=== PATIENT | male | born 1960 | race Caucasian/White ===

== ENCOUNTER 2019-02-28 12:04 | Emergency (ER) | payer BC ==
--- OUTSIDE RECORDS SUMMARY | 2019-02-28 12:12 | XMS REPORT | Continuity of Care Document ---
:1960 External Reference #:[id number] Author Name Machelle Rapp MD Address [address] [place] [address] Care Team Providers Name Role Phone Jhonathan Vinson MD Care Team Information Medical Cash Poster Unavailable Jhonathan Vinson MD Primary Care Physician Unavailable Payers Date Identification Numbers Payment Provider Subscriber Policy Number: [id number] Laverne Fernandez PayID: [id number] [address] [address] [place] [address] Problems Active Problems Provider Date Hyperlipidemia Chauncey Hunt M.D. Onset: 11/21/2017 Taking medication Chauncey Hunt M.D. Onset: 11/21/2017 Screening for malignant neoplasm of prostate Chauncey Hunt M.D. Onset: 11/21 Abnormal results of cardiovascular function Chauncey Hunt M.D. Onset: 2017 studies Encounter for screening for nutritional Chauncey Hunt M.D. Onset: 11/21/2017 disorder Cough Chauncey Hunt M.D. Onset: 11/21/2017 Acute sinusitis Chauncey Hunt M.D. Onset: 11/21/2017 Electrocardiogram abnormal Chauncey Hunt M.D. Onset: 11/21/2017 Chronic obstructive lung disease Chauncey Hunt M.D. Onset: 11/30/2017 Aneurysm of thoracic aorta Chauncey Hunt M.D. Onset: 02/01/2018 Dyspnea Chauncey Hunt M.D. Onset: 02/01/2018 Abnormal findings diagnostic imaging of Chauncey Hunt M.D. Onset: 02/14/2018 liver+biliary tract Essential hypertension Chauncey Hunt M.D. Onset: 05/11/2018 Low back pain Chauncey Hunt M.D. 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'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 Independent with all ADL's Tobacco Use Start: Unknown End: Quit Unknown Smoking Status Reviewed: 02/26/19 Quit ETOH Use Currently consumes alcohol weekends Tobacco Use Start: Unknown End: Patient is a former smoker quit 1986 Unknown Recreational Drug Use Never Used Drugs Exercise Type/Frequency Exercises sporadically Allergies, Adverse Reactions, Alerts Active Allergies Reaction Severity Comments Date Unknown unknown injectable pain 12/31/2015 med Pravastatin severe lower leg pain Severe 01/26/2018 Medications Active Medications SIG Qnty Indications Ordering Provider Date Ubiquinol 2 by mouth once Chauncey Hunt, 02/19/2019 100mg Capsules daily M.DDelmi Aspir-Low 1 by mouth 90tabs Eulogio Reynoso, 03/29/[address] every day DO Vitamin D 1 by mouth Unknown 2000Unit every day Capsules History Medications Methylprednisolone take as 1dosepack M54.5 Gilbert, 08/23/2018 - 4mg TBPK directed James Grossman 02/19/2019 Medrol take as 21units Gilbert, 02/19/2018 - 4mg TBPK directed James Grossman 04/10/2018 Ubiquinol 1 by mouth 90caps Gilbert, 02/14/2018 - 100mg Capsules once daily James Grossman 02/19/2019 Amoxicillin take 1 tablet 20tabs J01.90 Gilbert, 11/21/2017 - 875mg Tablets by mouth every Andras, M.D. Unknown 12 hours for 10 days Pravastatin Sodium 1 by mouth 30tabs E78.5 Gilbert, 11/21/2017 - 20mg Tablets every day James Grossman Unknown No Active Medications Eulogio Reynoso 02/02/2016 - E., DO 03/29/2016 No Active Medications Eulogio Reynoso 12/31/2015 - E., DO 12/31/2015 Xyzal Eulogio Reynoso 12/31/2015 - 5mg Tablets E., DO 12/31/2015 No Active Medications Unknown 12/31/2015 - 12/31/2015 Immunizations CPT Code Status Date Vaccine Lot # [id number] Given 11/21/2017 Influenza Virus Vaccine Quadrivalent Iiv4 Split [id number] Preser Free Id Vital Signs Date Vital Result Comment 02/26/2019 2:25pm BP Systolic Sitting Left Arm 138 mmHg BP Diastolic Sitting Left Arm 58 mmHg Heart Rate 81 /min Respiratory Rate 16 /min Height 72 inches 6'0" Weight 227.00 lb BMI (Body Mass Index) 30.8 kg/m2 BSA (Body Surface Area) 2.25 m2 Bostic body weight in kilograms 81 kg 02/19/2019 9:07am BP Systolic 116 mmHg BP Diastolic 68 mmHg Heart Rate 68 /min Respiratory Rate 18 /min Height 72 inches 6'0" Weight 231.00 lb BMI (Body Mass Index) 31.3 kg/m2 BSA (Body Surface Area) 2.27 m2 Bostic body weight in kilograms 81 kg O2 % BldC Oximetry 98 % Ra 08/23/2018 1:25pm BP Systolic Sitting Left Arm 126 mmHg BP Diastolic Sitting Left Arm 70 mmHg Body Temperature 99.0 F Heart Rate 73 /min Respiratory Rate 18 /min Height 72 inches 6'0" Weight 229.00 lb BMI (Body Mass Index) 31.1 kg/m2 BSA (Body Surface Area) 2.26 m2 Bostic body weight in kilograms 81 kg O2 % BldC Oximetry 95 % Ra 08/21/2018 10:15am BP Systolic Sitting Left Arm 140 mmHg BP Diastolic Sitting Left Arm 77 mmHg Heart Rate 86 /min Respiratory Rate 18 /min Height 72 inches 6'0" Weight 229.00 lb BMI (Body Mass Index) 31.1 kg/m2 BSA (Body Surface Area) 2.26 m2 Bostic body weight in kilograms 81 kg O2 Saturation Level with Exercise 95 % 05/11/2018 4:12pm BP Systolic Sitting Left Arm 112 mmHg BP Diastolic Sitting Left Arm 64 mmHg Body Temperature 98.4 F Heart Rate 73 /min Respiratory Rate 16 /min Height 72 inches 6'0" Weight 228.00 lb BMI (Body Mass Index) 30.9 kg/m2 BSA (Body Surface Area) 2.25 m2 Bostic body weight in kilograms 81 kg O2 % BldC Oximetry 95 % Ra 04/10/2018 3:00pm BP Systolic Sitting Left Arm 112 mmHg BP Diastolic Sitting Left Arm 62 mmHg Heart Rate 70 /min Respiratory Rate 16 /min Height 72 inches 6'0" Weight 226.00 lb BMI (Body Mass Index) 30.6 kg/m2 BSA (Body Surface Area) 2.24 m2 Bostic body weight in kilograms 81 kg O2 % BldC Oximetry 94 % 02/14/2018 3:18pm BP Systolic 133 mmHg BP Diastolic 68 mmHg Body Temperature 98.7 F Heart Rate 76 /min Respiratory Rate 18 /min Height 72 inches 6'0" Weight 228.00 lb BMI (Body Mass Index) 30.9 kg/m2 BSA (Body Surface Area) 2.25 m2 Bostic body weight in kilograms 81 kg O2 % BldC Oximetry 95 % 02/01/2018 3:45pm BP Systolic 133 mmHg Checked With His Cuff 129/80 BP Diastolic 72 mmHg Checked With His Cuff 129/80 Body Temperature 97.7 F Heart Rate 72 /min Respiratory Rate 20 /min Height 72 inches 6'0" Weight 228.00 lb BMI (Body Mass Index) 30.9 kg/m2 BSA (Body Surface Area) 2.25 m2 Bostic body weight in kilograms 81 kg O2 % BldC Oximetry 93 % 01/26/2018 1:40pm BP Systolic Sitting Left Arm 120 mmHg BP Diastolic Sitting Left Arm 70 mmHg Respiratory Rate 16 /min Height 72 inches 6'0" Weight 226.00 lb BMI (Body Mass Index) 30.6 kg/m2 BSA (Body Surface Area) 2.24 m2 Bostic body weight in kilograms 81 kg 01/01/2018 1:58pm BP Systolic Sitting Left Arm 135 mmHg BP Diastolic Sitting Left Arm 70 mmHg Heart Rate 63 /min Respiratory Rate 16 /min Height 72 inches 6'0" Weight 227.00 lb BMI (Body Mass Index) 30.8 kg/m2 BSA (Body Surface Area) 2.25 m2 Bostic body weight in kilograms 81 kg 11/30/2017 11:00am BP Systolic 131 mmHg BP Diastolic 76 mmHg Heart Rate 70 /min Respiratory Rate 14 /min Height 72 inches 6'0" Weight 226.50 lb BMI (Body Mass Index) 30.7 kg/m2 BSA (Body Surface Area) 2.25 m2 Bostic body weight in kilograms 81 kg O2 % BldC Oximetry 96 % 11/21/2017 2:42pm BP Systolic 145 mmHg BP Diastolic 79 mmHg Heart Rate 101 /min Respiratory Rate 14 /min Height 72 inches 6'0" Weight 227.00 lb BMI (Body Mass Index) 30.8 kg/m2 BSA (Body Surface Area) 2.25 m2 Bostic body weight in kilograms 81 kg O2 % BldC Oximetry 95 % 03/29/2016 11:01am BP Systolic 123 mmHg BP Diastolic 77 mmHg Body Temperature 97.7 F Heart Rate 102 /min Height 72 inches 6'0" Weight 223.00 lb BMI (Body Mass Index) 30.2 kg/m2 BSA (Body Surface Area) 2.23 m2 02/02/2016 10:49am BP Systolic 137 mmHg BP Diastolic 78 mmHg Heart Rate 70 /min Height 72 inches 6'0" Weight 228.00 lb BMI (Body Mass Index) 30.9 kg/m2 BSA (Body Surface Area) 2.25 m2 O2 % BldC Oximetry 95 % 12/31/2015 9:53am BP Systolic 138 mmHg BP Diastolic 80 mmHg Heart Rate 68 /min Height 72 inches 6'0" Weight 225.00 lb BMI (Body Mass Index) 30.5 kg/m2 BSA (Body Surface Area) 2.24 m2 Results Test Date Facility Test Result H/L Range Note CBC 02/06/2019 [facility] White Blood 6.5 K/uL N 3.4-10.5 1 W/Automated [address] [place] [address] [phone] Red Blood Count 5.42 M/uL N 4.20-5.80 Hemoglobin 15.1 gm/dL N 12.8-17.0 Hematocrit 44.9 % N 38.0-48.0 Mean Cell Volume 82.8 fl N 80.0-96.0 Mean Corpuscular HGB 27.9 pg N 27.0-33.0 Mean Corpuscular HGB Conc 33.6 g/dL N 31.7-36.0 Platelet Count 198 K/uL N 155-360 Red Cell Distri Width SD 40.9 fl N 36-51 Red Cell Distri Width %CV 13.7 % N 11.6-15.8 Mean Platelet Volume 10.1 fl N 6.6-10.6 Neut% 59.4 % N 33.0-73.0 Lymph % 28.9 % N 20.0-42.0 Nuckolls % 8.5 % N 0.0-10.0 Eo% 2.2 % N 0.0-6.6 Bas% 0.8 % N 0.0-1.1 Immature Grans 0.2 % N 0.0-5.0 NRBC % 0.0 /100WBC < 10/ 100 WBC Neut# 3.87 K/uL N 1.8-7.0 Lymph # 1.88 K/uL N 1.0-4.0 Nuckolls # 0.55 K/uL N 0.0-0.8 Eos # 0.14 K/uL N 0.0-0.5 Baso # 0.05 K/uL N 0.0-0.1 Immature Grans Absolute 0.01 K/uL NRBC # 0.00 K/uL Comprehensive Metabolic 02/06/2019 [facility] Glucose 85 mg/dL N 74-106 Panel [address] [place] [address] [phone] BUN 14 mg/dL N 7-18 Creatinine 0.9 mg/dL N 0.6-1.3 Glom Filtration Rate, Estimate >60 mL/min >60 If >60 mL/min >60 2 BUN/Creat 15.5 ratio Sodium 140 mmol/L N 136-145 Potassium 3.7 mmol/L N 3.5-5.1 Chloride 108 mmol/L High 98-107 Carbon Dioxide 27 mmol/L N 21-32 Anion Gap 5 mEq/L Low 8-16 Calcium 8.7 mg/dL N 8.5-10.1 Total Protein 7.0 g/dL N 6.4-8.2 Albumin 4.0 g/dL N 3.4-5.0 Globulin 3.0 g/dL N 1.9-4.3 Alb/Glob 1.3 ratio Bilirubin,Total 0.7 mg/dL N 0.2-1.0 Sgot/Ast 17 U/L N 15-37 SGPT/Alt 34 U/L N 12-78 Alkaline Phosphatase 55 U/L N 45-117 Reflex add FT3? Y Reflex add FT4? Y LDL Cholesterol 02/06/2019 [facility] Cholesterol 212 mg/dL High <200 [address] [place] [address] [phone] Triglycerides 100 mg/dL <150 4 HDL Cholesterol 44 mg/dL >40 5 LDL-Cholesterol 148 mg/dL < 100 6 Reflex add FT3? Y Reflex add FT4? Y TSH Reflex FT4 02/06/2019 [facility] Thyroid Stim 0.86 uIU/mL N 0.30-4.20 And/Or FT3 [address] [place] [address] [phone] Reflex add FT3? Y Reflex add FT4? Y Glycohemoglobin A1c 02/06/2019 [facility] Glycohemoglobin 5.6 % N 4.2-6.[address] (A1c) [place] [address] [phone] eAG 114 mg/dL CBC W/Automated Diff 08/21/2018 [facility] White Blood 5.7 K/uL N 3.4-10.[address] [place] [address] [phone] Red Blood Count 5.57 M/uL N 4.20-5.80 Hemoglobin 15.3 gm/dL N 12.8-17.0 Hematocrit 45.7 % N 38.0-48.0 Mean Cell Volume 82.0 fl N 80.0-96.0 Mean Corpuscular HGB 27.5 pg N 27.0-33.0 Mean Corpuscular HGB Conc 33.5 g/dL N 31.7-36.0 Platelet Count 200 K/uL N 155-360 Red Cell Distri Width SD 42.0 fl N 36-51 Red Cell Distri Width %CV 14.3 % N 11.6-15.8 Mean Platelet Volume 10.5 fL N 6.6-10.6 Neut% 54.2 % N 33.0-73.0 Lymph % 33.4 % N 20.0-42.0 Nuckolls % 7.5 % N 0.0-10.0 Eo% 4.0 % N 0.0-6.6 Bas% 0.9 % N 0.0-1.1 Neut# 3.11 K/uL N 1.8-7.0 Lymph # 1.92 K/uL N 1.0-4.0 Nuckolls # 0.43 K/uL N 0.0-0.8 Eos # 0.23 K/uL N 0.0-0.5 Baso # 0.05 K/uL N 0.0-0.1 Comprehensive Metabolic 08/21/2018 [facility] Glucose 106 mg/dL N 74-106 Panel [address] [place] [address] [phone] BUN 12 mg/dL N 7-18 Creatinine 1.0 mg/dL N 0.6-1.3 Glom Filtration Rate, Estimate >60 mL/min >60 If >60 mL/min >60 9 BUN/Creat 12.0 ratio Sodium 142 mmol/L N 136-145 Potassium 3.9 mmol/L N 3.5-5.1 Chloride 109 mmol/L High 98-107 Carbon Dioxide 29 mmol/L N 21-32 Anion Gap 4 mEq/L Low 8-16 Calcium 8.7 mg/dL N 8.5-10.1 Total Protein 7.1 g/dL N 6.4-8.2 Albumin 3.8 g/dL N 3.4-5.0 Globulin 3.3 g/dL N 1.9-4.3 Alb/Glob 1.2 ratio Bilirubin,Total 0.6 mg/dL N 0.2-1.0 Sgot/Ast 23 U/L N 15-37 SGPT/Alt 38 U/L N 12-78 Alkaline Phosphatase 58 U/L N 45-117 Reflex add FT3? Y Reflex add FT4? Y Magnesium 08/21/2018 [facility] Magnesium 2.3 mg/dL N 1.8-2.4 [address] [place] [address] [phone] Reflex add FT3? Y Reflex add FT4? Y Ua RFX Micro & Culture 08/21/2018 [facility] Urine Color YELLOW Yellow II [address] [place] [address] [phone] Urine Clarity CLEAR Clear Urine Glucose - Dipstick NEGATIVE mg/dL Negative Urine Bilirubin - Dipstick NEGATIVE Negative Urine Ketone NEGATIVE mg/dL Negative Urine Specific [place]ax >=1.030 N 1.010-1.030 Urine Blood NEGATIVE Negative Urine PH 6.0 Low 6.5-7.5 Urine Protein - Dipstick NEGATIVE mg/dL Negative Urine Urobilinogen - Dipstick 0.2 E.U./dL N 0.2-1.0 Urine Nitrite - Dipstick NEGATIVE Negative Urine Leuk Esterase NEGATIVE Negative Source: URINE, CLEAN CAT <SEE NOTE> 10 LDL Cholesterol Profile 08/21/2018 [facility] Cholesterol 195 mg/dL <[address] [place] [address] [phone] Triglycerides 117 mg/dL <150 12 HDL Cholesterol 41 mg/dL >40 13 LDL-Cholesterol 131 mg/dL < 100 14 Reflex add FT3? Y Reflex add FT4? Y TSH Reflex FT4 08/21/2018 [facility] Thyroid Stim 2.40 uIU/mL N 0.30-4.20 And/Or FT3 [address] [place] [address] [phone] Reflex add FT3? Y Reflex add FT4? Y CBS W/Automated 05/09/2018 [facility] White Blood 5.1 K/uL N 3.4-10.5 [address] [place] [address] [phone] Red Blood Count 5.22 M/uL N 4.20-5.80 Hemoglobin 14.8 gm/dL N 12.8-17.0 Hematocrit 43.1 % N 38.0-48.0 Mean Cell Volume 82.6 fl N 80.0-96.0 Mean Corpuscular HGB 28.4 pg N 27.0-33.0 Mean Corpuscular HGB Conc 34.3 g/dL N 31.7-36.0 Platelet Count 199 K/uL N 155-360 Red Cell Distri Width SD 42.3 fl N 36-51 Red Cell Distri Width %CV 14.2 % N 11.6-15.8 Mean Platelet Volume 10.7 fL High 6.6-10.6 Neut% 50.9 % N 33.0-73.0 Lymph % 32.0 % N 20.0-42.0 Nuckolls % 11.6 % High 0.0-10.0 Eo% 4.5 % N 0.0-6.6 Bas% 1.0 % N 0.0-1.1 Neut# 2.60 K/uL N 1.8-7.0 Lymph # 1.63 K/uL N 1.0-4.0 Nuckolls # 0.59 K/uL N 0.0-0.8 Eos # 0.23 K/uL N 0.0-0.5 Baso # 0.05 K/uL N 0.0-0.1 Laboratory test finding 05/09/2018 [facility] CK 196 U/L N 39-308 [address] [place] [address] [phone] Comprehensive Metabolic 05/09/2018 [facility] Glucose 105 mg/dL N 74-106 Panel [address] [place] [address] [phone] BUN 15 mg/dL N 7-18 Creatinine 0.9 mg/dL N 0.6-1.3 Glom Filtration Rate, Estimate >60 mL/min >60 If >60 mL/min >60 16 BUN/Creat 16.6 ratio Sodium 144 mmol/L N 136-145 Potassium 3.8 mmol/L N 3.5-5.1 Chloride 110 mmol/L High 98-107 Carbon Dioxide 24 mmol/L N 21-32 Anion Gap 10 mEq/L N 8-16 Calcium 7.8 mg/dL Low 8.5-10.1 Total Protein 6.6 g/dL N 6.4-8.2 Albumin 3.6 g/dL N 3.4-5.0 Globulin 3.0 g/dL N 1.9-4.3 Alb/Glob 1.2 ratio Bilirubin,Total 0.3 mg/dL N 0.2-1.0 Sgot/Ast 19 U/L N 15-37 SGPT/Alt 32 U/L N 12-78 Alkaline Phosphatase 47 U/L N 45-117 LDL Cholesterol 05/09/2018 [facility] Cholesterol 201 mg/dL High <200 17 Profile [address] [place] [address] [phone] Triglycerides 94 mg/dL <150 18 HDL Cholesterol 38 mg/dL Low >40 19 LDL-Cholesterol 144 mg/dL < 100 20 Laboratory test 01/24/2018 [facility] CK 128 U/L N 39-308 21, 22 finding [address] [place] [address] [phone] Comprehensive 01/24/2018 [facility] Glucose 105 mg/dL N 74-106 Metabolic Panel [address] [place] [address] [phone] BUN 16 mg/dL N 7-18 Creatinine 1.0 mg/dL N 0.6-1.3 Glom Filtration Rate, Estimate >60 mL/min >60 If >60 mL/min >60 23 BUN/Creat 16.0 ratio Sodium 141 mmol/L N 136-145 Potassium 4.0 mmol/L N 3.5-5.1 Chloride 106 mmol/L N 98-107 Carbon Dioxide 27 mmol/L N 21-32 Anion Gap 8 mEq/L N 8-16 Calcium 8.6 mg/dL N 8.5-10.1 Total Protein 6.9 g/dL N 6.4-8.2 Albumin 4.0 g/dL N 3.4-5.0 Globulin 2.9 g/dL N 1.9-4.3 Alb/Glob 1.4 ratio Bilirubin,Total 0.5 mg/dL N 0.2-1.0 Sgot/Ast 13 U/L Low 15-37 24 SGPT/Alt 31 U/L N 12-78 Alkaline Phosphatase 55 U/L N 45-117 CBS W/Automated Diff 01/24/2018 [facility] White Blood 4.9 K/uL N 3.4-10.5 [address] [place] [address] [phone] Red Blood Count 5.49 M/uL N 4.20-5.80 Hemoglobin 15.4 gm/dL N 12.8-17.0 Hematocrit 45.0 % N 38.0-48.0 Mean Cell Volume 82.0 fl N 80.0-96.0 Mean Corpuscular HGB 28.1 pg N 27.0-33.0 Mean Corpuscular HGB Conc 34.2 g/dL N 31.7-36.0 Platelet Count 187 K/uL N 155-360 Red Cell Distri Width SD 41.3 fl N 36-51 Red Cell Distri Width %CV 14.2 % N 11.6-15.8 Mean Platelet Volume 10.6 fL N 6.6-10.6 Neut% 55.4 % N 33.0-73.0 Lymph % 29.2 % N 20.0-42.0 Nuckolls % 9.7 % N 0.0-10.0 Eo% 4.9 % N 0.0-6.6 Bas% 0.8 % N 0.0-1.1 Neut# 2.73 K/uL N 1.8-7.0 Lymph # 1.44 K/uL N 1.0-4.0 Nuckolls # 0.48 K/uL N 0.0-0.8 Eos # 0.24 K/uL N 0.0-0.5 Baso # 0.04 K/uL N 0.0-0.1 Laboratory test 01/24/2018 [facility] HDL Cholesterol 39 mg/dL Low >40 [address] [place], [place] [id number] [phone] Direct LDL 01/24/2018 [facility] LDL Chol. 124 mg/dL High 0-[address] (Direct) [place], [place] [address] [phone] Comment (SEE NOTE) 26 Laboratory test 01/24/2018 [facility] Triglycerides 99 mg/dL <150 [address] [place] [address] [phone] HDL Cholesterol 11/22/2017 [facility] HDL Cholesterol 43 mg/dL >40 28, [address] [place], [place] [address] [phone] Reflex add FT3? Y Reflex add FT4? Y Direct LDL 11/22/2017 [facility] LDL Chol. 183 mg/dL High 0-[address] (Direct) [place], [place] [id number] [phone] Comment (SEE NOTE) 30 Triglycerides 11/22/2017 [facility] Triglycerides 113 mg/dL <[address] [place], [place] [id number] [phone] Reflex add FT3? Y Reflex add FT4? Y Laboratory test 11/22/2017 [facility] Vitamin 31.4 30.0-100.0 [address] D,25-Hydroxy ng/[place] [address] [phone] Prostate 11/22/2017 [facility] PSA ([place] Loci) 3.11 < 4.0 33 Specific [address] [facility] ng/mL Antigen [place], [place] [id number] [phone] Reflex add FT3? Y Reflex add FT4? Y Ua RFX Micro & Culture 11/22/2017 [facility] Urine Color YELLOW Yellow II [address] [place] [address] [phone] Urine Clarity CLEAR Clear Urine Glucose - Dipstick NEGATIVE mg/dL Negative Urine Bilirubin - Dipstick NEGATIVE Negative Urine Ketone NEGATIVE mg/dL Negative Urine Specific [place] 1.025 N 1.010-1.030 Urine Blood NEGATIVE Negative Urine PH 6.0 Low 6.5-7.5 Urine Protein - Dipstick NEGATIVE mg/dL Negative Urine Urobilinogen - Dipstick 0.2 E.U./dL N 0.2-1.0 Urine Nitrite - Dipstick NEGATIVE Negative Urine Leuk Esterase NEGATIVE Negative Source: URINE, CLEAN CAT <SEE NOTE> 34 Magnesium 11/22/2017 [facility] Magnesium 2.2 mg/dL N 1.8-2.4 [address] [place] [address] [phone] Reflex add FT3? Y Reflex add FT4? Y Comprehensive Metabolic 11/22/2017 [facility] Glucose 107 mg/dL High 74-106 Panel [address] [place] [address] [phone] BUN 14 mg/dL N 7-18 Creatinine 0.9 mg/dL N 0.6-1.3 Glom Filtration Rate, Estimate >60 mL/min >60 If >60 mL/min >60 35 BUN/Creat 15.5 ratio Sodium 142 mmol/L N 136-145 Potassium 4.0 mmol/L N 3.5-5.1 Chloride 110 mmol/L High 98-107 Carbon Dioxide 29 mmol/L N 21-32 Anion Gap 3 mEq/L Low 8-16 Calcium 9.0 mg/dL N 8.5-10.1 Total Protein 7.1 g/dL N 6.4-8.2 Albumin 3.9 g/dL N 3.4-5.0 Globulin 3.2 g/dL N 1.9-4.3 Alb/Glob 1.2 ratio Bilirubin,Total 0.6 mg/dL N 0.2-1.0 Sgot/Ast 16 U/L N 15-37 SGPT/Alt 27 U/L N 12-78 Alkaline Phosphatase 54 U/L N 45-117 Reflex add FT3? Y Reflex add FT4? Y CBS W/Automated Diff 11/22/2017 [facility] White Blood 6.1 K/uL N 3.4-10.[address] [place] [address] [phone] Red Blood Count 5.51 M/uL N 4.20-5.80 Hemoglobin 15.6 gm/dL N 12.8-17.0 Hematocrit 44.8 % N 38.0-48.0 Mean Cell Volume 81.3 fl N 80.0-96.0 Mean Corpuscular HGB 28.3 pg N 27.0-33.0 Mean Corpuscular HGB Conc 34.8 g/dL N 31.7-36.0 Platelet Count 207 K/uL N 155-360 Red Cell Distri Width SD 41.3 fl N 36-51 Red Cell Distri Width %CV 14.3 % N 11.6-15.8 Mean Platelet Volume 10.8 fL High 6.6-10.6 Neut% 57.6 % N 33.0-73.0 Lymph % 27.1 % N 20.0-42.0 Nuckolls % 8.9 % N 0.0-10.0 Eo% 5.6 % N 0.0-6.6 Bas% 0.8 % N 0.0-1.1 Neut# 3.51 K/uL N 1.8-7.0 Lymph # 1.65 K/uL N 1.0-4.0 Nuckolls # 0.54 K/uL N 0.0-0.8 Eos # 0.34 K/uL N 0.0-0.5 Baso # 0.05 K/uL N 0.0-0.1 TSH Reflex FT4 11/22/2017 [facility] Thyroid Stim 1.86 uIU/mL N 0.30-4.20 And/Or FT3 [address] [place] [address] [phone] Reflex add FT3? Y Reflex add FT4? Y PSA (Free 01/01/2016 [facility] Prostate-specific 2.6 ng/mL 0.0-4.0 36 And Total) [address] [facility] antigen,[place] [address] [phone] PSA,Free 0.68 N/Ang/mL 37 %Free PSA 26.2 % . 38 LDL Cholesterol 01/01/2016 [facility] Cholesterol 222 mg/dL High <200 39 Profile [address] [place] [address] [phone] Triglycerides 157 mg/dL High <150 40 HDL Cholesterol 39 mg/dL Low >40 41 LDL-Cholesterol 152 mg/dL < 100 42 Comprehensive Metabolic 01/01/2016 [facility] Glucose 106 mg/dL 74-106 Panel [address] [place] [address] [phone] BUN 16 mg/dL 7-18 Creatinine 0.9 mg/dL 0.6-1.3 Glom Filtration Rate, Estimate >60 mL/min >60 If >60 mL/min >60 43 BUN/Creat 17.7 ratio Sodium 141 mmol/L 136-145 Potassium 4.1 mmol/L 3.5-5.1 Chloride 107 mmol/L 98-107 Carbon Dioxide 26 mmol/L 21-32 Anion Gap 8 mEq/L 8-16 Calcium 8.6 mg/dL 8.5-10.1 Total Protein 7.1 g/dL 6.4-8.2 Albumin 3.8 g/dL 3.4-5.0 Globulin 3.3 g/dL 1.9-4.3 Alb/Glob 1.2 ratio Bilirubin,Total 0.7 mg/dL 0.2-1.0 Sgot/Ast 17 U/L 15-37 SGPT/Alt 43 U/L 12-78 Alkaline Phosphatase 56 U/L 45-117 CBC W/Automated Diff 01/01/2016 [facility] White Blood 5.4 K/uL 3.4-10.[address] [address] [phone] Red Blood Count 5.79 M/uL 4.20-5.80 Hemoglobin 16.2 gm/dL 12.8-17.0 Hematocrit 47.0 % 38.0-48.0 Mean Cell Volume 81.2 fl 80.0-96.0 Mean Corpuscular HGB 28.0 pg 27.0-33.0 Mean Corpuscular HGB Conc 34.5 g/dL 31.7-36.0 Platelet Count 195 K/uL 150-400 Red Cell Distri Width SD 40.9 fl 36-51 Red Cell Distri Width %CV 14.2 % 11.6-15.8 Mean Platelet Volume 10.2 fL 6.6-10.6 Neut% 60.6 % 33.0-73.0 Lymph % 25.9 % 17.0-56.0 Nuckolls % 8.1 % 0.0-10.0 Eo% 4.3 % 0.0-5.0 Bas% 1.1 % High 0.1-1.0 Neut# 3.28 K/uL 1.8-7.0 Lymph # 1.40 K/uL Low 1.8-7.0 Nuckolls # 0.44 K/uL 0.0-0.8 Eos # 0.23 K/uL 0.0-0.5 Baso # 0.06 K/uL Low 0.1-0.2 1 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 Patients with eGFR values >/=60 mL/min/1.73 m2 may also have CKD if evidence of persistent proteinuria is present. The original MDRD equation for estimated GFR is not valid for patients less than 18 years of age. Additional information may be found at www.kdoqi.org. 3 Reference Guidelines*: Desirable: ........... < 200 mg/dL Borderline High: ..... 200-239 mg/dL High: ................ >=240 mg/dL * The National Cholesterol Education Program (NCEP) 4 Reference Guidelines*: Normal: ............. < 150 mg/dL Borderline High: .... 150-199 mg/dL High: ............... 200-499 mg/dL Very High: .......... > 500 mg/dL * Source: National Cholesterol Education Program (NCEP) 5 Reference Guidelines*: Low HDL: ..... < 40 mg/dL Normal: ..... 40-60 mg/dL Desirable: ... > 60 mg/dL *The National Cholesterol Education Program(NCEP) 6 Reference Guidelines*: Optimal:........... <100 mg/dL Near Optimal....... 100-129 mg/dL Borderline High.... 130-159 mg/dL High............... 160-189 mg/dL Very High.......... >=190 mg/dL * Source: National Cholesterol Education Program (NCEP) 7 Elevated levels of HbA1c suggest the need for more aggressive treatment of glycemia. The [place] [employer] recommends that a primary goal of therapy should be a HbA1c of <7% and that physicians should re-evaluate the treatment regimen in patients with HbA1c values consistently >8%. 8 Z79.899,E78.2 9 Note: Persistent reduction for 3 months or more in an eGFR <60 mL/min/1.73 m2 defines CKD. Patients with eGFR values >/=60 mL/min/1.73 m2 may also have CKD if evidence of persistent proteinuria is present. The original MDRD equation for estimated GFR is not valid for patients less than 18 years of age. Additional information may be found at www.kdoqi.org. 10 URINE, CLEAN CATCH 11 Reference Guidelines*: Desirable: ........... < 200 mg/dL Borderline High: ..... 200-239 mg/dL High: ................ >=240 mg/dL * The National Cholesterol Education Program (NCEP) 12 Reference Guidelines*: Normal: ............. < 150 mg/dL Borderline High: .... 150-199 mg/dL High: ............... 200-499 mg/dL Very High: .......... > 500 mg/dL * Source: National Cholesterol Education Program (NCEP) 13 Reference Guidelines*: Low HDL: ..... < 40 mg/dL Normal: ..... 40-60 mg/dL Desirable: ... > 60 mg/dL *The National Cholesterol Education Program(NCEP) 14 Reference Guidelines*: Optimal:........... <100 mg/dL Near Optimal....... 100-129 mg/dL Borderline High.... 130-159 mg/dL High............... 160-189 mg/dL Very High.......... >=190 mg/dL * Source: National Cholesterol Education Program (NCEP) 15 E78.5,Z79.899 16 Note: Persistent reduction for 3 months or more in an eGFR <60 mL/min/1.73 m2 defines CKD. Patients with eGFR values >/=60 mL/min/1.73 m2 may also have CKD if evidence of persistent proteinuria is present. The original MDRD equation for estimated GFR is not valid for patients less than 18 years of age. Additional information may be found at www.kdoqi.org. 17 Reference Guidelines*: Desirable: ........... < 200 mg/dL Borderline High: ..... 200-239 mg/dL High: ................ >=240 mg/dL * The National Cholesterol Education Program (NCEP) 18 Reference Guidelines*: Normal: ............. < 150 mg/dL Borderline High: .... 150-199 mg/dL High: ............... 200-499 mg/dL Very High: .......... > 500 mg/dL * Source: National Cholesterol Education Program (NCEP) 19 Reference Guidelines*: Low HDL: ..... < 40 mg/dL Normal: ..... 40-60 mg/dL Desirable: ... > 60 mg/dL *The National Cholesterol Education Program(NCEP) 20 Reference Guidelines*: Optimal:........... <100 mg/dL Near Optimal....... 100-129 mg/dL Borderline High.... 130-159 mg/dL High............... 160-189 mg/dL Very High.......... >=190 mg/dL * Source: National Cholesterol Education Program (NCEP) 21 Z79.899,E78.5 22 Is Patient Fasting? Fasting 23 Note: Persistent reduction for 3 months or more in an eGFR <60 mL/min/1.73 m2 defines CKD. Patients with eGFR values >/=60 mL/min/1.73 m2 may also have CKD if evidence of persistent proteinuria is present. The original MDRD equation for estimated GFR is not valid for patients less than 18 years of age. Additional information may be found at www.kdoqi.org. 24 Values below the stated reference ranges of AST and ALT can be seen in normal populations. Clinical correlation is suggested. 25 Reference Guidelines*: Low HDL: ..... < 40 mg/dL Normal: ..... 40-60 mg/dL Desirable: ... > 60 mg/dL *The National Cholesterol Education Program(NCEP) 26 Performed at: [facility] [id number] [place]: Olivia Patel MD, Phone: [phone] 27 Reference Guidelines*: Normal: ............. < 150 mg/dL Borderline High: .... 150-199 mg/dL High: ............... 200-499 mg/dL Very High: .......... > 500 mg/dL * Source: National Cholesterol Education Program (NCEP) 28 E78.5,Z79.899,Z12.5,Z13.21 29 Reference Guidelines*: Low HDL: ..... < 40 mg/dL Normal: ..... 40-60 mg/dL Desirable: ... > 60 mg/dL *The National Cholesterol Education Program(NCEP) 30 Performed at: [facility] [id number] [place]: Olivia Patel MD, Phone: [phone] 31 Reference Guidelines*: Normal: ............. < 150 mg/dL Borderline High: .... 150-199 mg/dL High: ............... 200-499 mg/dL Very High: .......... > 500 mg/dL * Source: National Cholesterol Education Program (NCEP) 32 Vitamin D deficiency has been defined by the [place] of Medicine and an Endocrine Society practice guideline as a level of serum 25-OH vitamin D less than 20 ng/mL (1,2). The Endocrine Society went on to further define vitamin D insufficiency as a level between 21 and 29 ng/mL (2). 1. IOM ([place] of Medicine). 2010. Dietary reference intakes for calcium and D. [place]: The National Academies Press. 2. Shea MF, Lashawn MARRUFO, Rina BREWER, et al. Evaluation, treatment, and prevention of vitamin D deficiency: an Endocrine Society clinical practice guideline. JCEM. 2010; 96(7):1911-30. Performed at: - [facility] [id number] [place]: Olivia Patel MD, Phone: [phone] 33 THIS ASSAY IS NOT INTENDED A CANCER SCREENING TEST The concentration of PSA in a given specimen, determined with assays from different manufacturers, can vary due to differences in assay methods and reagent specificity. Values obtained from different assay methods cannot be used interchangeably. Method: Siemens CBLPath [place] Chemiluminescent immunoassay. 34 URINE, CLEAN CATCH 35 Note: Persistent reduction for 3 months or more in an eGFR <60 mL/min/1.73 m2 defines CKD. Patients with eGFR values >/=60 mL/min/1.73 m2 may also have CKD if evidence of persistent proteinuria is present. The original MDRD equation for estimated GFR is not valid for patients less than 18 years of age. Additional information may be found at www.kdoqi.org. 36 Janet ECLIA methodology. According to the [place] [employer], Serum PSA should decrease and remain at undetectable levels after radical prostatectomy. The AUA defines biochemical recurrence as an initial PSA value 0.2 ng/mL or greater followed by a subsequent confirmatory PSA value 0.2 ng/mL or greater. Values obtained with different assay methods or kits cannot be used interchangeably. Results cannot be interpreted as absolute evidence of the presence or absence of malignant disease. 37 Janet ECLIA methodology. 38 The table below lists the probability of prostate cancer for men with non-suspicious CARON results and total PSA between 4 and 10 ng/mL, by patient age (Catalona et al, NIKKI 1998, 279:1542). % Free PSA 50-64 yr 65-75 yr 0.00-10.00% 56% 55% 10.01-15.00% 24% 35% 15.01-20.00% 17% 23% 20.01-25.00% 10% 20% >25.00% 5% 9% Please note: Sanket et al did not make specific recommendations regarding the use of percent free PSA for any other population of men. Performed at: RN - [facility] [address] [id number] [place]: Olivia Patel MD, Phone: [phone] 39 Reference Guidelines*: Desirable: ........... < 200 mg/dL Borderline High: ..... 200-239 mg/dL High: ................ >=240 mg/dL * The National Cholesterol Education Program (NCEP) 40 Reference Guidelines*: Normal: ............. < 150 mg/dL Borderline High: .... 150-199 mg/dL High: ............... 200-499 mg/dL Very High: .......... > 500 mg/dL * Source: National Cholesterol Education Program (NCEP) 41 Reference Guidelines*: Low HDL: ..... < 40 mg/dL Normal: ..... 40-60 mg/dL Desirable: ... > 60 mg/dL *The National Cholesterol Education Program(NCEP) 42 Reference Guidelines*: Optimal:........... <100 mg/dL Near Optimal....... 100-129 mg/dL Borderline High.... 130-159 mg/dL High............... 160-189 mg/dL Very High.......... >=190 mg/dL * Source: National Cholesterol Education Program (NCEP) 43 Note: Persistent reduction for 3 months or more in an eGFR <60 mL/min/1.73 m2 defines CKD. Patients with eGFR values >/=60 mL/min/1.73 m2 may also have CKD if evidence of persistent proteinuria is present. The original MDRD equation for estimated GFR is not valid for patients less than 18 years of age. Additional information may be found at www.kdoqi.org. Procedures Date Code Description Status 02/26/2019 18165 EKG-Tracing And Report Completed 02/06/2019 82909 Echocardiogram Complete Completed 04/17/2018 11708 Bronchospasm Provocation Evaluation Multi Spirometric Completed Determinati 04/17/2018 91668 Spirometry Completed 01/15/2018 30872 ECHO [employer]anst[employer] Performance Continuous Completed Electrocardio 01/01/2018 26916 EKG-Tracing And Report Completed 11/23/2017 97561 Echocardiogram Complete Completed 03/29/2016 25306 Asp./Injection major joint Completed 01/11/2016 13153 Stress Test Interpre And Report Only Completed 01/11/2016 77795 Stress Test Physician Super Only Completed 01/11/2016 62754 Stress Test Physician Super Only Completed 01/11/2016 29014 Myocardial Imaging Tomographic Multiple Study AT Rest Completed Or Stress 09/04/2012 [id number] Colonoscopy Completed Encounters Type Date Location Provider Dx Diagnosis Office Visit 02/26/2019 Cardiology Office Machelle Rapp MD I71.2 Thoracic aortic 2:15p aneurysm, without rupture I10 Essential (primary) hypertension I35.1 Nonrheumatic aortic (valve) insufficiency Office Visit 02/19/2019 9:00a Family Medicine Jhonathan Vinson I71.2 Thoracic aortic Rodrick COELHO MD aneurysm, without rupture E78.2 Mixed hyperlipidemia Z79.899 Other chcf (current) drug therapy K76.0 Fatty (change of) liver, not elsewhere classified 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, subcu of head, face and neck I10 Essential (primary) hypertension Office Visit 08/23/2018 1:00p Primary Care Chauncey Hunt I71.2 Thoracic aortic Office M.DDelmi aneurysm, without rupture M54.5 Low back pain E78.2 Mixed hyperlipidemia R93.2 Abnormal findings on dx imaging of liver and biliary tract Z79.899 Other terminal manager (current) drug therapy Office Visit 08/21/2018 10:00a Cardiology Office Machelle Rapp I71.2 Thoracic aortic aneurysm, without rupture I35.1 Nonrheumatic aortic (valve) insufficiency I10 Essential (primary) hypertension E78.2 Mixed hyperlipidemia Office Visit 05/11/2018 3:40p Primary Care Chauncey Hunt, I71.2 Thoracic aortic Office M.D. aneurysm, without rupture Z79.899 Other chcf (current) drug therapy E78.2 Mixed hyperlipidemia Office Visit 04/10/2018 3:00p Pulmonology Dilan Heredia MD R06.02 Shortness of breath F17.211 Nicotine dependence, cigarettes, in remission Office Visit 02/14/2018 3:20p Primary Care Chauncey Hunt R93.2 Abnormal findings Office M.D. on dx imaging of liver and biliary tract Office Visit 02/01/2018 3:40p Primary Care Chauncey Hunt E78.5 Hyperlipidemia, Office M.D. unspecified I71.2 Thoracic aortic aneurysm, without rupture R06.02 Shortness of breath J44.9 Chronic obstructive pulmonary disease, unspecified Z79.899 Other chcf (current) drug therapy Office Visit 01/26/2018 1:30p Cardiology Office Machelle Rapp, R06.02 Shortness of MD breath I71.2 Thoracic aortic aneurysm, without rupture E78.2 Mixed hyperlipidemia I10 Essential (primary) hypertension Office Visit 01/01/2018 1:30p Cardiology Machelle Rapp, R94.30 Abnormal result of Office cardiovascular function study, unsp E78.2 Mixed hyperlipidemia R06.02 Shortness of breath Office Visit 11/30/2017 11:00a Primary Care Chauncey Hunt E78.5 Hyperlipidemia, Office M.D. unspecified Z79.899 Other terminal manager (current) drug therapy J01.90 Acute sinusitis, unspecified J44.9 Chronic obstructive pulmonary disease, unspecified Office Visit 11/21/2017 2:40p Primary Care Chauncey Hunt E78.5 Hyperlipidemia, Office M.D. unspecified Z79.899 Other terminal manager (current) drug therapy Z12.5 Encounter for screening for malignant neoplasm of prostate R94.39 Abnormal result of other cardiovascular function study Z13.21 Encounter for screening for nutritional disorder R05 Cough J01.90 Acute sinusitis, unspecified R94.31 Abnormal electrocardiogram [ECG] [EKG] Z23 Encounter for immunization Office Visit 03/29/2016 11:00a Primary Care Eulogio Reynoso M75.41 Impingement Office E., DO syndrome of right shoulder Office Visit 02/02/2016 10:40a Primary Care Eulogio Reynoso E78.5 Hyperlipidemia, Office E., DO unspecified Office Visit 12/31/2015 10:00a Primary Care Eulogio Reynoso Z00.00 Encntr for general Office E., DO adult medical exam w/o abnormal findings R07.9 Chest pain, unspecified M54.2 Cervicalgia Plan of Treatment Future Appointment(s):02/26/2020 10:00 am - Machelle Rapp MD at Cardiology [place]4508/20/2019 8:00 am - Jhonathan Vinson MD at [facility] [address] - Machelle Rapp MDI71.2 Thoracic aortic aneurysm, without ruptureNew Xrays: CT, Chest W Out Contrast, Ordered: 02/26/19Ultrasound, Aortic Screening (Only Once A Year), Ordered: 02/26/19Comments:Stable TAA 4.4cm by CT. BP well controlled. Counseled on avoidance of heavy isometric exercise. Lipids followed by PCP - pt intolerant to statins. I will set him up for annual surveillance CT and sincehe has h/o smoking (albeit quit in 1987) will also get AAA screening USG.I10 Essential (primary) hypertensionComments:Well controlled. No changes. Manually 130 mmHg, at home 120' mmHg [id number] Nonrheumatic aortic (valve) insufficiencyComments:Only mild AI with tricuspid AV on echo 02/2019. No need for follow up imaging unless change in symptoms.AllFollow up:[address]
--- OUTSIDE RECORDS SUMMARY | 2019-02-28 12:12 | XMS REPORT | Continuity of Care Document ---
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 Onset: 02/14/2018 liver+biliary tract Essential hypertension Chauncey Hunt M.D. Onset: 05/11/2018 Low back pain Chauncey Hunt M.D. 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 Employed [employer] ADL's/IADL's Independent with all ADL's Tobacco Use Start: Unknown End: Quit Unknown Smoking Status Reviewed: 02/19/19 Quit ETOH Use Currently consumes alcohol weekends [...] 11/21/2017 - 875mg Tablets by mouth every James Grossman Unknown 12 hours for 10 days Pravastatin [...] CPT Code Status Date Vaccine Lot # 63623 Given 11/21/2017 Influenza Virus Vaccine Quadrivalent Iiv4 Split [id number] Preser Free Id Vital Signs Date Vital Result Comment 02/19/2019 9:07am BP Systolic 116 mmHg BP Diastolic 68 mmHg Heart Rate 68 /min Respiratory Rate 18 /min Height 72 inches 6'0" Weight 231.00 lb BMI (Body Mass Index) 31.3 kg/m2 BSA (Body Surface Area) 2.27 m2 [place] body weight in kilograms 81 kg O2 % BldC Oximetry 98 % Ra 08/23/2018 1:25pm BP Systolic Sitting Left Arm 126 mmHg BP Diastolic Sitting Left Arm 70 mmHg Body Temperature 99.0 F Heart Rate 73 /min Respiratory Rate 18 /min Height 72 inches 6'0" Weight 229.00 lb BMI (Body Mass Index) 31.1 kg/m2 BSA (Body Surface Area) 2.26 m2 [place] body weight in kilograms 81 kg O2 % BldC Oximetry 95 % Ra 08/21/2018 10:15am BP Systolic Sitting Left Arm 140 mmHg BP Diastolic Sitting Left Arm 77 mmHg Heart Rate 86 /min Respiratory Rate 18 /min Height 72 inches 6'0" Weight 229.00 lb BMI (Body Mass Index) 31.1 kg/m2 BSA (Body Surface Area) 2.26 m2 [place] body weight in kilograms 81 kg O2 Saturation Level with Exercise 95 % 05/11/2018 4:12pm BP Systolic Sitting Left Arm 112 mmHg BP Diastolic Sitting Left Arm 64 mmHg Body Temperature 98.4 F Heart Rate 73 /min Respiratory Rate 16 /min Height 72 inches 6'0" Weight 228.00 lb BMI (Body Mass Index) 30.9 kg/m2 BSA (Body Surface Area) 2.25 m2 [place] body weight in kilograms 81 kg O2 % BldC Oximetry 95 % Ra 04/10/2018 3:00pm BP Systolic Sitting Left Arm 112 mmHg BP Diastolic Sitting Left Arm 62 mmHg Heart Rate 70 /min Respiratory Rate 16 /min Height 72 inches 6'0" Weight 226.00 lb BMI (Body Mass Index) 30.6 kg/m2 BSA (Body Surface Area) 2.24 m2 [place] body weight in kilograms 81 kg O2 % BldC Oximetry 94 % 02/14/2018 3:18pm BP Systolic 133 mmHg BP Diastolic 68 mmHg Body Temperature 98.7 F Heart Rate 76 /min Respiratory Rate 18 /min Height 72 inches 6'0" Weight 228.00 lb BMI (Body Mass Index) 30.9 kg/m2 BSA (Body Surface Area) 2.25 m2 [place] body weight in kilograms 81 kg O2 % BldC Oximetry 95 % 02/01/2018 3:45pm BP Systolic 133 mmHg Checked With His Cuff 129/80 BP Diastolic 72 mmHg Checked With His Cuff 129/80 Body Temperature 97.7 F Heart Rate 72 /min Respiratory Rate 20 /min Height 72 inches 6'0" Weight 228.00 lb BMI (Body Mass Index) 30.9 kg/m2 BSA (Body Surface Area) 2.25 m2 [place] body weight in kilograms 81 kg O2 % BldC Oximetry 93 % 01/26/2018 1:40pm BP Systolic Sitting Left Arm 120 mmHg BP Diastolic Sitting Left Arm 70 mmHg Respiratory Rate 16 /min Height 72 inches 6'0" Weight 226.00 lb BMI (Body Mass Index) 30.6 kg/m2 BSA (Body Surface Area) 2.24 m2 [place] body weight in kilograms 81 kg 01/01/2018 1:58pm BP Systolic Sitting Left Arm 135 mmHg BP Diastolic Sitting Left Arm 70 mmHg Heart Rate 63 /min Respiratory Rate 16 /min Height 72 inches 6'0" Weight 227.00 lb BMI (Body Mass Index) 30.8 kg/m2 BSA (Body Surface Area) 2.25 m2 [place] body weight in kilograms 81 kg 11/30/2017 11:00am BP Systolic 131 mmHg BP Diastolic 76 mmHg Heart Rate 70 /min Respiratory Rate 14 /min Height 72 inches 6'0" Weight 226.50 lb BMI (Body Mass Index) 30.7 kg/m2 BSA (Body Surface Area) 2.25 m2 [place] body weight in kilograms 81 kg O2 % BldC Oximetry 96 % 11/21/2017 2:42pm BP Systolic 145 mmHg BP Diastolic 79 mmHg Heart Rate 101 /min Respiratory Rate 14 /min Height 72 inches 6'0" Weight 227.00 lb BMI (Body Mass Index) 30.8 kg/m2 BSA (Body Surface Area) 2.25 m2 [place] body weight in kilograms 81 kg O2 [...] Date Facility Test Result H/L Range Note Glycohemoglobin A1c [facility] Glycohemoglobin 5.6 % N 4.2-6.3 1, [address] (A1c) [place], [place] [id number] [phone] eAG 114 mg/dL CBC W/Automated Diff 02/06/2019 [facility] White Blood 6.5 K/uL N 3.4-10.[address] Count [place], [place] [address] [phone] Red Blood Count 5.42 M/uL N 4.20-5.80 [...] 33.0-73.0 Lymph % 28.9 % N 20.0-42.0 Bledsoe % 8.5 % N 0.0-10.0 Eo% 2.2 % N 0.0-6.6 Bas% 0.8 % N 0.0-1.1 Immature Grans 0.2 % N 0.0-5.0 NRBC % 0.0 /100WBC < 10/ 100 WBC Neut# 3.87 K/uL N 1.8-7.0 Lymph # 1.88 K/uL N 1.0-4.0 Bledsoe # 0.55 K/uL N 0.0-0.8 Eos # 0.14 K/uL N 0.0-0.5 Baso # 0.05 K/uL N 0.0-0.1 Immature Grans Absolute 0.01 K/uL NRBC # 0.00 K/uL Comprehensive Metabolic 02/06/2019 [facility] Glucose 85 mg/dL N 74-106 Panel [address] [place] [address] [phone] BUN 14 mg/dL N 7-18 Creatinine 0.9 mg/dL N 0.6-1.3 Glom Filtration Rate, Estimate >60 mL/min >60 If >60 mL/min >60 3 BUN/Creat 15.5 ratio Sodium 140 mmol/L N [...] Reflex add FT4? Y LDL Cholesterol 02/06/2019 [facility] Cholesterol 212 mg/dL High <200 [address] [place] [address] [phone] Triglycerides 100 mg/dL <150 5 HDL Cholesterol 44 mg/dL >40 6 LDL-Cholesterol 148 mg/dL < 100 7 Reflex add FT3? Y Reflex add FT4? Y TSH Reflex FT4 02/06/2019 [facility] Thyroid Stim 0.86 uIU/mL N 0.30-4.20 And/Or FT3 [address] [place] [address] [phone] Reflex add FT3? Y Reflex add FT4? Y CBC W/Automated Diff 08/21/2018 [facility] White Blood 5.7 K/uL N 3.4-10.[address] [place] [address] [phone] Red Blood Count 5.57 M/uL N 4.20-5.80 [...] 33.0-73.0 Lymph % 33.4 % N 20.0-42.0 Bledsoe % 7.5 % N 0.0-10.0 Eo% 4.0 % N 0.0-6.6 Bas% 0.9 % N 0.0-1.1 Neut# 3.11 K/uL N 1.8-7.0 Lymph # 1.92 K/uL N 1.0-4.0 Bledsoe # 0.43 K/uL N 0.0-0.8 Eos # 0.23 K/uL N 0.0-0.5 Baso # 0.05 K/uL N 0.0-0.1 Comprehensive Metabolic 08/21/2018 [facility] Glucose 106 mg/dL N 74-106 Panel [address] [place] [address] [phone] BUN 12 mg/dL N 7-18 Creatinine 1.0 [...] add FT4? Y TSH Reflex FT4 08/21/2018 [facility] Thyroid Stim 2.40 uIU/mL N 0.30-4.20 And/Or FT3 [address] [place], [place] [address] [phone] Reflex add FT3? Y Reflex add FT4? Y Magnesium 08/21/2018 [facility] Magnesium 2.3 mg/dL N 1.8-2.4 [address] [place] [address] [phone] Reflex add FT3? Y Reflex add FT4? Y Ua RFX Micro & Culture 08/21/2018 [facility] Urine Color YELLOW Yellow II [address] [place] [address] [phone] Urine Clarity CLEAR Clear Urine Glucose - Dipstick NEGATIVE mg/dL Negative Urine Bilirubin - Dipstick NEGATIVE Negative Urine Ketone NEGATIVE mg/dL Negative Urine Specific [place] >=1.030 N 1.010-1.030 Urine Blood NEGATIVE Negative Urine PH 6.0 Low 6.5-7.5 Urine Protein - Dipstick NEGATIVE mg/dL Negative Urine Urobilinogen - Dipstick 0.2 E.U./dL N 0.2-1.0 Urine Nitrite - Dipstick NEGATIVE Negative Urine Leuk Esterase NEGATIVE Negative Source: URINE, CLEAN CAT <SEE NOTE> 10 LDL Cholesterol Profile 08/21/2018 [facility] Cholesterol 195 mg/dL <200 11 [address] [place], [place] [address] [phone] Triglycerides 117 mg/dL <150 12 HDL Cholesterol 41 mg/dL >40 13 LDL-Cholesterol 131 mg/dL < 100 14 Reflex add FT3? Y Reflex add FT4? Y LDL Cholesterol 05/09/2018 [facility] Cholesterol 201 mg/dL High <200 15, 16 Profile [address] [place], [place] [address] [phone] Triglycerides 94 mg/dL <150 17 HDL Cholesterol 38 mg/dL Low >40 18 LDL-Cholesterol 144 mg/dL < 100 19 Comprehensive Metabolic 05/09/2018 [facility] Glucose 105 mg/dL N 74-106 Panel [address] [place], [place] [address] [phone] BUN 15 mg/dL N 7-18 Creatinine 0.9 mg/dL N 0.6-1.3 Glom Filtration Rate, Estimate >60 mL/min >60 If >60 mL/min >60 20 BUN/Creat 16.6 ratio Sodium 144 mmol/L N [...] 12-78 Alkaline Phosphatase 47 U/L N 45-117 CBS W/Automated Diff 05/09/2018 [facility] White Blood 5.1 K/uL N 3.4-10.[address] [place] [address] [phone] Red Blood Count 5.22 M/uL N 4.20-5.80 [...] 33.0-73.0 Lymph % 32.0 % N 20.0-42.0 Bledsoe % 11.6 % High 0.0-10.0 Eo% 4.5 % N 0.0-6.6 Bas% 1.0 % N 0.0-1.1 Neut# 2.60 K/uL N 1.8-7.0 Lymph # 1.63 K/uL N 1.0-4.0 Bledsoe # 0.59 K/uL N 0.0-0.8 Eos # 0.23 K/uL N 0.0-0.5 Baso # 0.05 K/uL N 0.0-0.1 Laboratory test finding 05/09/2018 [facility] CK 196 U/L N 39-308 [address] [place] [address] [phone] Comprehensive Metabolic 01/24/2018 [facility] Glucose 105 mg/dL N 74-106 21 Panel [address] [place] [address] [phone] BUN 16 mg/dL N 7-18 Creatinine 1.0 mg/dL N 0.6-1.3 Glom Filtration Rate, Estimate >60 mL/min >60 If >60 mL/min >60 22 BUN/Creat 16.0 ratio Sodium 141 mmol/L N [...] N 0.2-1.0 Sgot/Ast 13 U/L Low 15-37 23 SGPT/Alt 31 U/L N 12-78 Alkaline Phosphatase 55 U/L N 45-117 CBS W/Automated Diff 01/24/2018 [facility] White Blood 4.9 K/uL N 3.4-10.[address] Count [place], [place] [id number] [phone] Red Blood Count 5.49 M/uL N 4.20-5.80 [...] 33.0-73.0 Lymph % 29.2 % N 20.0-42.0 Bledsoe % 9.7 % N 0.0-10.0 Eo% 4.9 % N 0.0-6.6 Bas% 0.8 % N 0.0-1.1 Neut# 2.73 K/uL N 1.8-7.0 Lymph # 1.44 K/uL N 1.0-4.0 Bledsoe # 0.48 K/uL N 0.0-0.8 Eos # 0.24 K/uL N 0.0-0.5 Baso # 0.04 K/uL N 0.0-0.1 Laboratory test 01/24/2018 [facility] HDL Cholesterol 39 mg/dL Low >40 [address] [place] [address] [phone] Direct LDL 01/24/2018 [facility] LDL Chol. 124 mg/dL High 0-[address] (Direct) [place] [address] [phone] Comment (SEE NOTE) 25 Laboratory test 01/24/2018 [facility] Triglycerides 99 mg/dL <150 26 finding [address] [place] [address] [phone] Laboratory test 01/24/2018 [facility] CK 128 U/L N 39-308 [address] [place] [address] [phone] HDL Cholesterol 11/22/2017 [facility] HDL Cholesterol 43 mg/dL >40 28, [address] [place] [address] [phone] Reflex add FT3? Y Reflex add FT4? Y Direct LDL 11/22/2017 [facility] LDL Chol. 183 mg/dL High 0-[address] (Direct) [place] [address] [phone] Comment (SEE NOTE) 30 Triglycerides 11/22/2017 [facility] Triglycerides 113 mg/dL <[address] [place] [address] [phone] Reflex add FT3? Y Reflex add FT4? Y TSH Reflex FT4 11/22/2017 [facility] Thyroid Stim 1.86 uIU/mL N 0.30-4.20 And/Or FT3 [address] Hormone [place], [place] [address] [phone] Reflex add FT3? Y Reflex add FT4? Y CBS W/Automated Diff 11/22/2017 [facility] White Blood 6.1 K/uL N 3.4-10.[address] Count [place], [place] [address] [phone] Red Blood Count 5.51 M/uL N 4.20-5.80 [...] 33.0-73.0 Lymph % 27.1 % N 20.0-42.0 Bledsoe % 8.9 % N 0.0-10.0 Eo% 5.6 % N 0.0-6.6 Bas% 0.8 % N 0.0-1.1 Neut# 3.51 K/uL N 1.8-7.0 Lymph # 1.65 K/uL N 1.0-4.0 Bledsoe # 0.54 K/uL N 0.0-0.8 Eos # 0.34 K/uL N 0.0-0.5 Baso # 0.05 K/uL N 0.0-0.1 Comprehensive Metabolic 11/22/2017 [facility] Glucose 107 mg/dL High 74-106 Panel [address] [place] [address] [phone] BUN 14 mg/dL N 7-18 Creatinine 0.9 mg/dL N 0.6-1.3 Glom Filtration Rate, Estimate >60 mL/min >60 If >60 mL/min >60 32 BUN/Creat 15.5 ratio Sodium 142 mmol/L N [...] FT3? Y Reflex add FT4? Y Magnesium 11/22/2017 [facility] Magnesium 2.2 mg/dL N 1.8-2.4 [address] [place] [address] [phone] Reflex add FT3? Y Reflex add FT4? Y Ua RFX Micro & Culture 11/22/2017 [facility] Urine Color YELLOW Yellow II [address] [place] [address] [phone] Urine Clarity CLEAR Clear Urine Glucose - Dipstick NEGATIVE mg/dL Negative Urine Bilirubin - Dipstick NEGATIVE Negative Urine Ketone NEGATIVE mg/dL Negative Urine Specific [place] 1.025 N 1.010-1.030 Urine Blood NEGATIVE Negative Urine PH 6.0 Low 6.5-7.5 Urine Protein - Dipstick NEGATIVE mg/dL Negative Urine Urobilinogen - Dipstick 0.2 E.U./dL N 0.2-1.0 Urine Nitrite - Dipstick NEGATIVE Negative Urine Leuk Esterase NEGATIVE Negative Source: URINE, CLEAN CAT <SEE NOTE> 33 Prostate Specific 11/22/2017 [facility] PSA (Grant 3.11 ng/mL < 4.0 [address] [place]) [place] [address] [phone] Reflex add FT3? Y Reflex add FT4? Y Laboratory test 11/22/2017 [facility] Vitamin 31.4 30.0-100.[address] D,25-Hydroxy ng/mL [place], [place] [address] [phone] PSA (Free And 01/01/2016 [facility] Prostate-specifi 2.6 ng/mL 0.0-4.0 36 Total) [address] c [place] [address] [phone] PSA,Free 0.68 N/Ang/mL 37 %Free PSA 26.2 % . 38 LDL Cholesterol 01/01/2016 [facility] Cholesterol 222 mg/dL High <200 [address] [place] [address] [phone] Triglycerides 157 mg/dL High <150 40 HDL Cholesterol 39 mg/dL Low >40 41 LDL-Cholesterol 152 mg/dL < 100 42 Comprehensive Metabolic 01/01/2016 [facility] Glucose 106 mg/dL 74-106 Panel [address] [place] [address] [phone] BUN 16 mg/dL 7-18 Creatinine 0.9 mg/dL [...] 56 U/L 45-117 CBC W/Automated Diff 01/01/2016 [facility] White Blood 5.4 K/uL 3.4-10.5 [address] [place] [address] [phone] Red Blood Count 5.79 M/uL 4.20-5.80 Hemoglobin [...] % 33.0-73.0 Lymph % 25.9 % 17.0-56.0 Bledsoe % 8.1 % 0.0-10.0 Eo% 4.3 % 0.0-5.0 Bas% 1.1 % High 0.1-1.0 Neut# 3.28 K/uL 1.8-7.0 Lymph # 1.40 K/uL Low 1.8-7.0 Bledsoe # 0.44 K/uL 0.0-0.8 Eos # 0.23 K/uL 0.0-0.5 Baso # 0.06 K/uL Low 0.1-0.2 1 I71.2 THORACIC AORTIC ANEURYSM, I35.1 NONRHEUMATIC 2 Elevated levels of HbA1c suggest the need for more aggressive treatment of glycemia. The [place] Diabetes Association recommends that a primary goal of therapy should be a HbA1c of <7% and that physicians should re-evaluate the treatment regimen in patients with HbA1c values consistently >8%. 3 Note: Persistent reduction for 3 months or more in an eGFR <60 mL/min/1.73 m2 defines CKD. Patients with eGFR values >/=60 mL/min/1.73 m2 may also have CKD if evidence of persistent proteinuria is present. The original MDRD equation for estimated GFR is not valid for patients less than 18 years of age. Additional information may be found at www.kdoqi.org. 4 Reference Guidelines*: Desirable: ........... < 200 mg/dL Borderline High: ..... 200-239 mg/dL High: ................ >=240 mg/dL * The National Cholesterol Education Program (NCEP) 5 Reference Guidelines*: Normal: ............. < 150 mg/dL Borderline High: .... 150-199 mg/dL High: ............... 200-499 mg/dL Very High: .......... > 500 mg/dL * Source: National Cholesterol Education Program (NCEP) 6 Reference Guidelines*: Low HDL: ..... < 40 mg/dL Normal: ..... 40-60 mg/dL Desirable: ... > 60 mg/dL *The National Cholesterol Education Program(NCEP) 7 Reference Guidelines*: Optimal:........... <100 mg/dL Near Optimal....... 100-129 mg/dL Borderline High.... 130-159 mg/dL High............... 160-189 mg/dL Very High.......... >=190 mg/dL * Source: National Cholesterol Education Program (NCEP) 8 Z79.899,E78.2 9 Note: Persistent reduction for [...] Cholesterol Education Program (NCEP) 15 E78.5,Z79.899 16 Reference Guidelines*: Desirable: ........... < 200 mg/dL Borderline High: ..... 200-239 mg/dL High: ................ >=240 mg/dL * The National Cholesterol Education Program (NCEP) 17 Reference Guidelines*: Normal: ............. < 150 mg/dL Borderline High: .... 150-199 mg/dL High: ............... 200-499 mg/dL Very High: .......... > 500 mg/dL * Source: National Cholesterol Education Program (NCEP) 18 Reference Guidelines*: Low HDL: ..... < 40 mg/dL Normal: ..... 40-60 mg/dL Desirable: ... > 60 mg/dL *The National Cholesterol Education Program(NCEP) 19 Reference Guidelines*: Optimal:........... <100 mg/dL Near Optimal....... 100-129 mg/dL Borderline High.... 130-159 mg/dL High............... 160-189 mg/dL Very High.......... >=190 mg/dL * Source: National Cholesterol Education Program (NCEP) 20 Note: Persistent reduction for 3 months or more in an eGFR <60 mL/min/1.73 m2 defines CKD. Patients with eGFR values >/=60 mL/min/1.73 m2 may also have CKD if evidence of persistent proteinuria is present. The original MDRD equation for estimated GFR is not valid for patients less than 18 years of age. Additional information may be found at www.kdoqi.org. 21 Z79.899,E78.5 22 Note: Persistent reduction for 3 months or more in an eGFR <60 mL/min/1.73 m2 defines CKD. Patients with eGFR values >/=60 mL/min/1.73 m2 may also have CKD if evidence of persistent proteinuria is present. The original MDRD equation for estimated GFR is not valid for patients less than 18 years of age. Additional information may be found at www.kdoqi.org. 23 Values below the stated reference ranges of AST and ALT can be seen in normal populations. Clinical correlation is suggested. 24 Reference Guidelines*: Low HDL: ..... < 40 mg/dL Normal: ..... 40-60 mg/dL Desirable: ... > 60 mg/dL *The National Cholesterol Education Program(NCEP) 25 Performed at: RN - [facility] [address] [id number] Jewelry Jobber: Olivia Patel MD, Phone: [phone] 26 Reference Guidelines*: Normal: ............. < 150 mg/dL Borderline High: .... 150-199 mg/dL High: ............... 200-499 mg/dL Very High: .......... > 500 mg/dL * Source: National Cholesterol Education Program (NCEP) 27 Is Patient Fasting? Fasting 28 E78.5,Z79.899,Z12.5,Z13.21 29 Reference Guidelines*: Low HDL: ..... < 40 mg/dL Normal: ..... 40-60 mg/dL Desirable: ... > 60 mg/dL *The National Cholesterol Education Program(NCEP) 30 Performed at: RN - [facility] [address] [id number] Jewelry Jobber: Olivia Patel MD, Phone: [phone] 31 Reference Guidelines*: Normal: ............. < 150 mg/dL Borderline High: .... 150-199 mg/dL High: ............... 200-499 mg/dL Very High: .......... > 500 mg/dL * Source: National Cholesterol Education Program (NCEP) 32 Note: Persistent reduction for 3 months or more in an eGFR <60 mL/min/1.73 m2 defines CKD. Patients with eGFR values >/=60 mL/min/1.73 m2 may also have CKD if evidence of persistent proteinuria is present. The original MDRD equation for estimated GFR is not valid for patients less than 18 years of age. Additional information may be found at www.kdoqi.org. 33 URINE, CLEAN CATCH 34 THIS ASSAY IS NOT INTENDED A CANCER SCREENING TEST The concentration of PSA in a given specimen, determined with assays from different manufacturers, can vary due to differences in assay methods and reagent specificity. Values obtained from different assay methods cannot be used interchangeably. Method: Siemens [employer] Grant Chemiluminescent immunoassay. 35 Vitamin D deficiency has been defined by the [place] of [employer] and an Endocrine Society practice guideline as a level of serum 25-OH vitamin D less than 20 ng/mL (1,2). The Endocrine Society went on to further define vitamin D insufficiency as a level between 21 and 29 ng/mL (2). 1. IOM ([place] [employer]). 2010. Dietary reference intakes for calcium and D. [place]: The National Academies Press. 2. Shea MF, Lashawn NC, Rina BREWER, et al. Evaluation, treatment, and prevention of vitamin D deficiency: an Endocrine Society clinical practice guideline. JCEM. 2010; 96(7):1911-30. Performed at: - [facility] [id number] Jewelry Jobber: Olivia Patel MD, Phone: [phone] 36 Janet ECLIA methodology. According to the [place] Urological Association, Serum PSA should decrease and [...] 4 and 10 ng/mL, by patient age (Sanket et al, NIKKI 1998, 279:1542). % Free PSA 50-64 yr 65-75 yr 0.00-10.00% 56% 55% 10.01-15.00% 24% 35% 15.01-20.00% 17% 23% 20.01-25.00% 10% 20% >25.00% 5% 9% Please note: Sanket et al did not make specific recommendations regarding the use of percent free PSA for any other population of men. Performed at: RN - [facility] [address] [id number] Jewelry Jobber: Olivia Patel MD, Phone: [phone] Reference Guidelines*: Desirable: ........... < 200 [...] at www.kdoqi.org. Procedures Date Code Description Status 04/17/2018 30099 Bronchospasm Provocation Evaluation Multi Spirometric Completed Determinati 04/17/2018 52778 Spirometry Completed 01/15/2018 58989 ECHO Transthoracic Inc Performance Continuous Completed Electrocardio 01/01/2018 64660 EKG-Tracing And Report Completed 11/23/2017 90404 Echocardiogram Complete Completed 03/29/2016 70462 Asp./Injection major joint Completed 01/11/2016 90695 Stress Test Interpre And Report Only Completed 01/11/2016 74737 Stress Test Physician Super Only Completed 01/11/2016 72424 Stress Test Physician Super Only Completed 01/11/2016 05581 Myocardial Imaging Tomographic Multiple Study AT Rest Completed Or Stress 09/04/2012 66971395 Colonoscopy Completed Encounters Type Date Location Provider Dx Diagnosis Office Visit 02/19/2019 Family Medicine Jhonathan Vinson MD I71.2 Thoracic aortic 9:[address] aneurysm, without rupture E78.2 Mixed hyperlipidemia Z79.899 Other [facility] (current) drug therapy K76.0 Fatty (change of) liver, not elsewhere classified 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 aneurysm, without rupture M54.5 Low back pain E78.2 Mixed hyperlipidemia R93.2 Abnormal findings on dx imaging of liver and biliary tract Z79.899 Other [facility] (current) drug therapy Office Visit 08/21/2018 10:00a Cardiology Office Machelle Rapp I71.2 Thoracic aortic MD aneurysm, without rupture I35.1 Nonrheumatic aortic (valve) insufficiency I10 Essential (primary) hypertension E78.2 Mixed hyperlipidemia Office Visit 05/11/2018 3:40p Primary Care Chauncey Hunt I71.2 Thoracic aortic Office M.D. 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 E78.2 Mixed hyperlipidemia Office [...] Chronic obstructive pulmonary disease, unspecified Z79.899 Other [facility] (current) drug therapy Office Visit 01/26/2018 1:30p Cardiology Office Machelle Rapp, R06.02 Shortness of MD breath I71.2 Thoracic aortic aneurysm, without rupture E78.2 Mixed hyperlipidemia I10 Essential (primary) hypertension Office Visit 01/01/2018 1:30p Cardiology Machelle Rapp, R94.30 Abnormal result of Office MD cardiovascular function study, unsp E78.2 Mixed hyperlipidemia R06.02 Shortness of breath Office Visit 11/30/2017 11:00a Primary Care Chauncey Hunt E78.5 Hyperlipidemia, Office M.D. unspecified Z79.899 Other [facility] (current) drug therapy J01.90 Acute sinusitis, unspecified J44.9 Chronic obstructive pulmonary disease, unspecified Office Visit 11/21/2017 2:40p Primary Care Chauncey Hunt E78.5 Hyperlipidemia, Office M.D. 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
[2019-02-28 12:29] VITALS: BP 128/68
--- NOTE | 2019-02-28 13:15 | UC ---
Lower Extremity/Ankle HPI - HPI Summary HPI Summary: left foot pain x 1 week s/p fall a flight of stairs one week ago , injury to the medial side of the left foot pain was 5 out of 10 and was improving until this morning her re-injured his foot as he was pushing a golf cart pain is worse with walking, better with rest - History of Current Complaint Chief Complaint: UCLowerExtremity Stated Complaint: LT FOOT PAIN/INJ Time Seen by Provider: 02/28/19 13:00 Hx Obtained From: Patient Onset/Duration: Sudden Onset, Lasting Days - 7, Still Present, Worse Since - this morning Severity Initially: Mild Severity Currently: Severe Pain Intensity: 7 Aggravating Factor(s): Standing, Ambulation Alleviating Factor(s): Rest, Elevation, Ice Able to Bear Weight: Yes - Allergies/Home Medications Allergies/Adverse Reactions: Allergies Allergy/AdvReac Type Severity Reaction Status Date / Time Injectable Pain Medication Allergy Collapsed Uncoded 02/28/19 12:26 Lung in 1987 Home Medications: Home Medications Aspirin EC TAB* [Ecotrin EC Low Dose 81 MG*] 81 mg PO DAILY 02/28/19 [History Confirmed 02/28/19] Cholecalciferol TAB* [Vitamin D TAB*] 1,000 unit PO DAILY 02/28/19 [History Confirmed 02/28/19] Ubiquinol [Active-Q] 200 mg PO DAILY 02/28/19 [History Confirmed 02/28/19] PMH/Surg Hx/FS Hx/Imm Hx - Additional Past Medical History Additional PMH: AAA (Monitored), Collapsed Lung s/p Pain Medication Injection 1987 Cardiovascular History: Hypertension - Surgical History Surgical History: None - Social History Alcohol Use: Occasionally Substance Use Type: None Smoking Status (MU): Former Smoker When Did the Patient Quit Smoking/Using Tobacco: 1986 Review of Systems All Other Systems Reviewed And Are Negative: Yes Constitutional: Positive: Negative Skin: Positive: Negative Eyes: Positive: Negative ENT: Positive: Negative Is Patient Immunocompromised?: No Physical Exam Triage Information Reviewed: Yes Appearance: Well-Appearing, No Pain Distress, Well-Nourished Vital Signs: Initial Vital Signs Temp 97.7 F 02/28/19 12:23 Pulse 72 02/28/19 12:23 Resp 16 02/28/19 12:23 BP 128/68 02/28/19 12:23 Pulse Ox 97 02/28/19 12:23 Vital Signs Reviewed: Yes ENT: Positive: Normal ENT inspection, Hearing grossly normal, Pharynx normal Neck: Positive: Supple, Nontender, No Lymphadenopathy Respiratory: Positive: Chest non-tender, Lungs clear, Normal breath sounds Cardiovascular: Positive: RRR, No Murmur, Pulses Normal Musculoskeletal: Positive: Other: - right foot : no swelling, no erytheam, + tenderness plantar medial foot , Diagnostics - Laboratory Lab Results: xray right foot: no fracture Lower Extremity Course/Dx - Differential Dx/Diagnosis Provider Diagnosis: Plantar fasciitis Discharge - Sign-Out/Discharge Documenting (check all that apply): Patient Departure All imaging exams completed and their final reports reviewed: Yes - Discharge Plan Condition: Stable Disposition: HOME Patient Education Materials: Plantar Fasciitis Exercises (GEN), Plantar Fasciitis (ED) Referrals: Jhonathan Vinson MD [Primary Care Provider] - 7 Days - Billing Disposition and Condition Condition: STABLE Disposition: Home
== END 2019-02-28 13:18 | disposition home or self-care (01) ==
LOC: UCCORT 12:04
DX: M72.2 Plantar fascial fibromatosis (principal); I10 Essential (primary) hypertension; Z87.891 Personal history of nicotine dependence
CPT/HCPCS: 99211; G0463